=== PATIENT | male | born 1965 | race Caucasian/White ===

== ENCOUNTER 2020-10-16 12:25 | Inpatient (IN) | payer OTHER ==
[~2020-10-16] VITALS: Ht 165.1 cm; Wt 78.5 kg
[2020-10-16 13:52] VITALS: BP 126/75
[2020-10-16 16:10] VITALS: BP 140/77
[2020-10-16 16:38] VITALS: BP 140/77
[2020-10-16] MEDS: SENNA 187 MG TABLET PO SCH (20:47)
[2020-10-16] MEDS: ETHYL ALCOHOL 62% ANTISEPTIC NASAL INHALANT 0.6 ML AMPUL NASAL SCH (20:47)
[2020-10-16] MEDS: DOCUSATE SODIUM 100 MG CAPSULE PO SCH (20:48)
[2020-10-16 23:30] VITALS: BP 141/86
[2020-10-16] MEDS: MELATONIN 5 MG TABLET PO PRN (23:36)
[2020-10-17 00:03] VITALS: BP 141/86
[2020-10-17 06:26] LABS: BASOPHILS % (AUTO) 0.6 % (0.0-2.0); HEMATOCRIT 40.6 % (41-53); HEMOGLOBIN 13.6 g/dL (13.5-17.5); LYMPHOCYTES # (AUTO) 1.5 K/uL (1.0-4.8); LYMPHOCYTES % (AUTO) 15.3 % (22.0-44.0); MEAN CORPUSCULAR HEMOGLOBIN 30.8 pg (26.0-34.0); MEAN CORPUSCULAR HGB CONC 33.5 G/dL (31.0-37.0); MEAN CORPUSCULAR VOLUME 92 fL (80-100); MONOCYTES % (AUTO) 9.7 % (2.0-9.0); NEUTROPHILS # (AUTO) 7.1 K/uL (1.8-7.7); NEUTROPHILS % (AUTO) 70.4 % (40.0-70.0); PLATELET COUNT (AUTO) 363 K/uL (150-450); RED BLOOD CELL COUNT(AUTO) 4.41 MIL/uL (4.50-5.90); RED CELL DISTRIBUTION WIDTH 12.7 % (11.5-14.5)
[2020-10-17 06:46] LABS: ALANINE AMINOTRANSFERASE 76 U/L (12-78); ALBUMIN 3.3 g/dL (3.4-5.0); ALKALINE PHOSPHATASE 135 U/L (46-116); ANION GAP 11 mmol/L (8-16); ASPARTATE AMINOTRANSFERASE 40 U/L (15-37); BILIRUBIN,TOTAL 0.4 mg/dL (0.1-1.0); CALCIUM, TOTAL 9.1 mg/dL (8.8-10.5); CARBON DIOXIDE 24 mmol/L (22-29); CHLORIDE 105 mmol/L (98-107); CREATININE 0.61 mg/dL (0.60-1.30); GLOMERULAR FILTR. RATE CALC > 60 mL/min (>60); GLUCOSE,RANDOM 108 mg/dL (70-110); POTASSIUM 4.2 mmol/L (3.5-5.1); SODIUM SERUM 140 mmol/L (136-145); TOTAL PROTEIN, SERUM 7.7 g/dL (6.4-8.2); UREA NITROGEN, BLOOD 14 mg/dL (7-18)
[2020-10-17] MEDS: ETHYL ALCOHOL 62% ANTISEPTIC NASAL INHALANT 0.6 ML AMPUL NASAL SCH ×2 (08:44→21:20)
[2020-10-17] MEDS: MULTIVITAMINS WITH MINERALS, THERAPEUTIC TABLET PO SCH (08:44)
[2020-10-17] MEDS: POLYETHYLENE GLYCOL 3350 17 GM PACKET PO SCH (08:44)
[2020-10-17] MEDS: DOCUSATE SODIUM 100 MG CAPSULE PO SCH ×2 (08:44→21:20)
[2020-10-17] MEDS: SERTRALINE HCL 100 MG TABLET PO SCH (08:44)
[2020-10-17] MEDS: CHOLECALCIFEROL (VIT D3) 2,000 UNITS [50 MCG] TABLET PO SCH (08:44)
[2020-10-17] MEDS: ENOXAPARIN SODIUM 40 MG/0.4 ML PF SYRINGE SQ SCH (08:44)
[2020-10-17] MEDS ORDERED: DONEPEZIL HCL 10 MG TABLET PO SCH (09:00)
[2020-10-17 12:37] VITALS: BP 147/78
[2020-10-17] MEDS: MELATONIN 5 MG TABLET PO PRN (21:20)
[2020-10-17] MEDS: MEMANTINE HCL 10 MG TABLET PO SCH (21:20)
[2020-10-17] MEDS: SENNA 187 MG TABLET PO SCH (21:20)
[2020-10-17 22:12] VITALS: BP 130/73
[2020-10-18 09:34] VITALS: BP 118/70
[2020-10-18] MEDS: DOCUSATE SODIUM 100 MG CAPSULE PO SCH ×2 (12:58→20:30)
[2020-10-18] MEDS: SERTRALINE HCL 100 MG TABLET PO SCH (12:58)
[2020-10-18] MEDS: MULTIVITAMINS WITH MINERALS, THERAPEUTIC TABLET PO SCH (12:58)
[2020-10-18] MEDS: MEMANTINE HCL 10 MG TABLET PO SCH ×2 (12:58→20:30)
[2020-10-18] MEDS: ENOXAPARIN SODIUM 40 MG/0.4 ML PF SYRINGE SQ SCH (12:58)
[2020-10-18] MEDS: POLYETHYLENE GLYCOL 3350 17 GM PACKET PO SCH (12:58)
[2020-10-18] MEDS: CHOLECALCIFEROL (VIT D3) 2,000 UNITS [50 MCG] TABLET PO SCH (12:58)
[2020-10-18] MEDS: ETHYL ALCOHOL 62% ANTISEPTIC NASAL INHALANT 0.6 ML AMPUL NASAL SCH ×2 (12:59→20:30)
[2020-10-18] MEDS ORDERED: SODIUM CL IRRIG SOLN BOTTLE 250 ML IRRIG ONE (13:49)
[2020-10-18] MEDS: HYDROCORTISONE 2.5% 30 GM CREAM TP SCH ×2 (15:17→20:31)
[2020-10-18 15:43] VITALS: BP 111/76
[2020-10-18] MEDS: ACETAMINOPHEN 325 MG TABLET PO PRN ×2 (15:43→23:04)
[2020-10-18] MEDS: SENNA 187 MG TABLET PO SCH (20:30)
[2020-10-18] MEDS: MELATONIN 5 MG TABLET PO PRN (23:05)
[2020-10-18 23:18] VITALS: BP 133/71
[2020-10-19] MEDS: ETHYL ALCOHOL 62% ANTISEPTIC NASAL INHALANT 0.6 ML AMPUL NASAL SCH ×2 (08:29→20:39)
[2020-10-19] MEDS: MULTIVITAMINS WITH MINERALS, THERAPEUTIC TABLET PO SCH (08:30)
[2020-10-19] MEDS: SERTRALINE HCL 100 MG TABLET PO SCH (08:30)
[2020-10-19] MEDS: CHOLECALCIFEROL (VIT D3) 2,000 UNITS [50 MCG] TABLET PO SCH (08:30)
[2020-10-19] MEDS: POLYETHYLENE GLYCOL 3350 17 GM PACKET PO SCH (08:30)
[2020-10-19] MEDS: MEMANTINE HCL 10 MG TABLET PO SCH ×2 (08:30→20:39)
[2020-10-19] MEDS: DOCUSATE SODIUM 100 MG CAPSULE PO SCH ×2 (08:30→20:39)
[2020-10-19] MEDS: ENOXAPARIN SODIUM 40 MG/0.4 ML PF SYRINGE SQ SCH (08:31)
[2020-10-19] MEDS: HYDROCORTISONE 2.5% 30 GM CREAM TP SCH ×2 (08:31→20:39)
[2020-10-19] MEDS ORDERED: MECLIZINE HCL 25 MG TABLET PO PRN (08:45)
[2020-10-19 09:25] VITALS: BP 136/91
[2020-10-19] MEDS ORDERED: DOCUSATE SODIUM 283 MG/5 ML MINI-ENEMA PR PRN (16:30)
[2020-10-19 16:46] VITALS: BP 135/71
[2020-10-19] MEDS: SENNA 187 MG TABLET PO SCH (20:39)
[2020-10-19] MEDS: MELATONIN 5 MG TABLET PO PRN (20:44)
[2020-10-19 23:41] VITALS: BP 125/77
[2020-10-20] MEDS ORDERED: POLY17PO47 PO (03:45)
[2020-10-20] MEDS ORDERED: DOCU-270 PO (03:45)
[2020-10-20] MEDS ORDERED: MULT-1239 PO (03:46)
[2020-10-20] MEDS ORDERED: MEMA10TA11 PO (03:46)
[2020-10-20] MEDS ORDERED: SERT-162 PO (03:53)
[2020-10-20] MEDS ORDERED: HYDR30CR3 TP (03:53)
[2020-10-20] MEDS ORDERED: SENN8.6T90 PO (03:53)
[2020-10-20] MEDS ORDERED: CHOL200016 PO (03:53)
[2020-10-20] MEDS: SERTRALINE HCL 100 MG TABLET PO SCH (08:20)
[2020-10-20] MEDS: DOCUSATE SODIUM 100 MG CAPSULE PO SCH ×2 (08:20→20:48)
[2020-10-20] MEDS: POLYETHYLENE GLYCOL 3350 17 GM PACKET PO SCH (08:20)
[2020-10-20] MEDS: ENOXAPARIN SODIUM 40 MG/0.4 ML PF SYRINGE SQ SCH (08:20)
[2020-10-20] MEDS: MEMANTINE HCL 10 MG TABLET PO SCH ×2 (08:20→20:48)
[2020-10-20] MEDS: MULTIVITAMINS WITH MINERALS, THERAPEUTIC TABLET PO SCH (08:20)
[2020-10-20] MEDS: ETHYL ALCOHOL 62% ANTISEPTIC NASAL INHALANT 0.6 ML AMPUL NASAL SCH ×2 (08:20→20:48)
[2020-10-20] MEDS: CHOLECALCIFEROL (VIT D3) 2,000 UNITS [50 MCG] TABLET PO SCH (08:34)
[2020-10-20] MEDS: HYDROCORTISONE 2.5% 30 GM CREAM TP SCH ×2 (08:35→20:48)
[2020-10-20 09:01] VITALS: BP 134/76
[2020-10-20] MEDS: ACETAMINOPHEN 325 MG TABLET PO PRN (11:09)
[2020-10-20 16:30] VITALS: BP 127/80
[2020-10-20] MEDS: SENNA 187 MG TABLET PO SCH (20:48)
[2020-10-20] MEDS: MELATONIN 5 MG TABLET PO PRN (22:05)
[2020-10-21] VITALS: BP 123/75
[2020-10-21] MEDS: MEMANTINE HCL 10 MG TABLET PO SCH ×2 (08:24→20:03)
[2020-10-21] MEDS: SERTRALINE HCL 100 MG TABLET PO SCH (08:24)
[2020-10-21] MEDS: CHOLECALCIFEROL (VIT D3) 2,000 UNITS [50 MCG] TABLET PO SCH (08:24)
[2020-10-21] MEDS: ETHYL ALCOHOL 62% ANTISEPTIC NASAL INHALANT 0.6 ML AMPUL NASAL SCH ×2 (08:24→20:03)
[2020-10-21] MEDS: ENOXAPARIN SODIUM 40 MG/0.4 ML PF SYRINGE SQ SCH (08:24)
[2020-10-21] MEDS: MULTIVITAMINS WITH MINERALS, THERAPEUTIC TABLET PO SCH (08:24)
[2020-10-21] MEDS: POLYETHYLENE GLYCOL 3350 17 GM PACKET PO SCH (08:25)
[2020-10-21] MEDS: DOCUSATE SODIUM 100 MG CAPSULE PO SCH ×2 (08:25→20:03)
[2020-10-21] MEDS: HYDROCORTISONE 2.5% 30 GM CREAM TP SCH ×2 (08:25→20:04)
[2020-10-21 09:11] VITALS: BP 122/80
[2020-10-21] MEDS: ACETAMINOPHEN 325 MG TABLET PO PRN (12:28)
[2020-10-21 16:15] VITALS: BP 123/79
[2020-10-21] MEDS: MELATONIN 5 MG TABLET PO PRN (20:03)
[2020-10-21] MEDS: SENNA 187 MG TABLET PO SCH (20:03)
[2020-10-22] VITALS: BP 115/70
[2020-10-22] MEDS: MULTIVITAMINS WITH MINERALS, THERAPEUTIC TABLET PO SCH (08:49)
[2020-10-22] MEDS: ETHYL ALCOHOL 62% ANTISEPTIC NASAL INHALANT 0.6 ML AMPUL NASAL SCH ×2 (08:49→20:27)
[2020-10-22] MEDS: CHOLECALCIFEROL (VIT D3) 2,000 UNITS [50 MCG] TABLET PO SCH (08:49)
[2020-10-22] MEDS: DOCUSATE SODIUM 100 MG CAPSULE PO SCH ×2 (08:49→20:27)
[2020-10-22] MEDS: POLYETHYLENE GLYCOL 3350 17 GM PACKET PO SCH (08:49)
[2020-10-22] MEDS: HYDROCORTISONE 2.5% 30 GM CREAM TP SCH ×2 (08:50→20:27)
[2020-10-22] MEDS: ENOXAPARIN SODIUM 40 MG/0.4 ML PF SYRINGE SQ SCH (08:50)
[2020-10-22] MEDS: MEMANTINE HCL 10 MG TABLET PO SCH ×2 (08:50→20:26)
[2020-10-22] MEDS: SERTRALINE HCL 100 MG TABLET PO SCH (08:50)
[2020-10-22 09:30] VITALS: BP 122/77
[2020-10-22] MEDS: ACETAMINOPHEN 325 MG TABLET PO PRN ×2 (10:17→15:07)
[2020-10-22 16:07] VITALS: BP 125/73
[2020-10-22] MEDS: MELATONIN 5 MG TABLET PO PRN (20:26)
[2020-10-22] MEDS: SENNA 187 MG TABLET PO SCH (20:27)
[2020-10-22 23:24] VITALS: BP 112/77
[2020-10-23 06:37] LABS: HEMOGLOBIN A1C 5.6 % (3.8-5.6)
[2020-10-23 06:52] LABS: CHOL/HDL RATIO 4.9 (4.2-7.3); MAGNESIUM 2.1 mg/dL (1.80-2.40)
[2020-10-23] MEDS: ETHYL ALCOHOL 62% ANTISEPTIC NASAL INHALANT 0.6 ML AMPUL NASAL SCH ×2 (08:43→20:16)
[2020-10-23] MEDS: THIAMINE 100 MG TABLET PO SCH (08:43)
[2020-10-23] MEDS: FOLIC ACID 1 MG TABLET PO SCH (08:43)
[2020-10-23] MEDS: ENOXAPARIN SODIUM 40 MG/0.4 ML PF SYRINGE SQ SCH (08:43)
[2020-10-23] MEDS: SERTRALINE HCL 100 MG TABLET PO SCH (08:43)
[2020-10-23] MEDS: MULTIVITAMINS WITH MINERALS, THERAPEUTIC TABLET PO SCH (08:43)
[2020-10-23] MEDS: CHOLECALCIFEROL (VIT D3) 2,000 UNITS [50 MCG] TABLET PO SCH (08:43)
[2020-10-23] MEDS: DOCUSATE SODIUM 100 MG CAPSULE PO SCH (08:44)
[2020-10-23] MEDS: MEMANTINE HCL 10 MG TABLET PO SCH ×2 (08:45→20:16)
[2020-10-23] MEDS: HYDROCORTISONE 2.5% 30 GM CREAM TP SCH ×2 (08:46→20:16)
[2020-10-23] MEDS: POLYETHYLENE GLYCOL 3350 17 GM PACKET PO SCH (08:47)
[2020-10-23] MEDS ORDERED: POLYETHYLENE GLYCOL 3350 17 GM PACKET PO PRN (09:00)
[2020-10-23] MEDS ORDERED: DOCUSATE SODIUM 100 MG CAPSULE PO PRN (09:00)
[2020-10-23 09:39] VITALS: BP 120/78
[2020-10-23] MEDS: ACETAMINOPHEN 325 MG TABLET PO PRN (13:30)
[2020-10-23 16:30] VITALS: BP 110/70
[2020-10-23] MEDS: MELATONIN 5 MG TABLET PO PRN (23:59)
[2020-10-24 00:04] VITALS: BP 131/80
[2020-10-24 09:10] VITALS: BP 149/63
[2020-10-24] MEDS: ACETAMINOPHEN 325 MG TABLET PO PRN (09:26)
[2020-10-24] MEDS: MULTIVITAMINS WITH MINERALS, THERAPEUTIC TABLET PO SCH (09:27)
[2020-10-24] MEDS: CHOLECALCIFEROL (VIT D3) 2,000 UNITS [50 MCG] TABLET PO SCH (09:27)
[2020-10-24] MEDS: ETHYL ALCOHOL 62% ANTISEPTIC NASAL INHALANT 0.6 ML AMPUL NASAL SCH ×2 (09:27→21:20)
[2020-10-24] MEDS: MEMANTINE HCL 10 MG TABLET PO SCH ×2 (09:27→21:19)
[2020-10-24] MEDS: THIAMINE 100 MG TABLET PO SCH (09:27)
[2020-10-24] MEDS: SERTRALINE HCL 100 MG TABLET PO SCH (09:27)
[2020-10-24] MEDS: HYDROCORTISONE 2.5% 30 GM CREAM TP SCH ×2 (09:28→21:20)
[2020-10-24] MEDS: FOLIC ACID 1 MG TABLET PO SCH (09:28)
[2020-10-24] MEDS: ENOXAPARIN SODIUM 40 MG/0.4 ML PF SYRINGE SQ SCH (09:28)
[2020-10-24 17:00] VITALS: BP 120/64
[2020-10-24] MEDS: MELATONIN 5 MG TABLET PO PRN (21:19)
[2020-10-25 00:22] VITALS: BP 128/77
[2020-10-25 08:15] VITALS: BP 144/66
[2020-10-25] MEDS: FOLIC ACID 1 MG TABLET PO SCH (08:27)
[2020-10-25] MEDS: ETHYL ALCOHOL 62% ANTISEPTIC NASAL INHALANT 0.6 ML AMPUL NASAL SCH ×2 (08:27→20:13)
[2020-10-25] MEDS: MEMANTINE HCL 10 MG TABLET PO SCH ×2 (08:27→20:13)
[2020-10-25] MEDS: MULTIVITAMINS WITH MINERALS, THERAPEUTIC TABLET PO SCH (08:28)
[2020-10-25] MEDS: CHOLECALCIFEROL (VIT D3) 2,000 UNITS [50 MCG] TABLET PO SCH (08:28)
[2020-10-25] MEDS: HYDROCORTISONE 2.5% 30 GM CREAM TP SCH ×2 (08:28→20:13)
[2020-10-25] MEDS: ENOXAPARIN SODIUM 40 MG/0.4 ML PF SYRINGE SQ SCH (08:28)
[2020-10-25] MEDS: THIAMINE 100 MG TABLET PO SCH (08:28)
[2020-10-25] MEDS: SERTRALINE HCL 100 MG TABLET PO SCH (08:28)
[2020-10-25] MEDS: ACETAMINOPHEN 325 MG TABLET PO PRN (11:54)
[2020-10-25 16:19] VITALS: BP 101/57
[2020-10-25] MEDS: MELATONIN 5 MG TABLET PO PRN (20:56)
[2020-10-25 23:02] VITALS: BP 120/74
[2020-10-26] MEDS: MULTIVITAMINS WITH MINERALS, THERAPEUTIC TABLET PO SCH (08:46)
[2020-10-26] MEDS: FOLIC ACID 1 MG TABLET PO SCH (08:46)
[2020-10-26] MEDS: CHOLECALCIFEROL (VIT D3) 2,000 UNITS [50 MCG] TABLET PO SCH (08:46)
[2020-10-26] MEDS: MEMANTINE HCL 10 MG TABLET PO SCH ×2 (08:46→20:07)
[2020-10-26] MEDS: ETHYL ALCOHOL 62% ANTISEPTIC NASAL INHALANT 0.6 ML AMPUL NASAL SCH ×2 (08:46→20:07)
[2020-10-26] MEDS: THIAMINE 100 MG TABLET PO SCH (08:47)
[2020-10-26] MEDS: SERTRALINE HCL 100 MG TABLET PO SCH (08:47)
[2020-10-26] MEDS: ENOXAPARIN SODIUM 40 MG/0.4 ML PF SYRINGE SQ SCH (08:48)
[2020-10-26] MEDS: HYDROCORTISONE 2.5% 30 GM CREAM TP SCH ×2 (08:48→20:07)
[2020-10-26 08:49] VITALS: BP 128/75
[2020-10-26] MEDS: ACETAMINOPHEN 325 MG TABLET PO PRN (08:49)
[2020-10-26 09:49] VITALS: BP 128/75
[2020-10-26 16:11] VITALS: BP 113/68
[2020-10-26] MEDS: MELATONIN 5 MG TABLET PO PRN (20:07)
[2020-10-27] VITALS: BP 123/74
[2020-10-27] MEDS: ETHYL ALCOHOL 62% ANTISEPTIC NASAL INHALANT 0.6 ML AMPUL NASAL SCH ×2 (08:24→21:14)
[2020-10-27] MEDS: MULTIVITAMINS WITH MINERALS, THERAPEUTIC TABLET PO SCH (08:25)
[2020-10-27] MEDS: MEMANTINE HCL 10 MG TABLET PO SCH ×2 (08:25→21:14)
[2020-10-27] MEDS: FOLIC ACID 1 MG TABLET PO SCH (08:25)
[2020-10-27] MEDS: CHOLECALCIFEROL (VIT D3) 2,000 UNITS [50 MCG] TABLET PO SCH (08:26)
[2020-10-27] MEDS: SERTRALINE HCL 100 MG TABLET PO SCH (08:26)
[2020-10-27] MEDS: THIAMINE 100 MG TABLET PO SCH (08:26)
[2020-10-27] MEDS: ENOXAPARIN SODIUM 40 MG/0.4 ML PF SYRINGE SQ SCH (08:27)
[2020-10-27] MEDS: HYDROCORTISONE 2.5% 30 GM CREAM TP SCH ×2 (08:28→21:15)
[2020-10-27 08:49] VITALS: BP 147/84
[2020-10-27 16:01] VITALS: BP 124/53
[2020-10-27] MEDS: MELATONIN 5 MG TABLET PO PRN (21:44)
[2020-10-28 05:45] VITALS: BP 133/73
[2020-10-28] MEDS: ETHYL ALCOHOL 62% ANTISEPTIC NASAL INHALANT 0.6 ML AMPUL NASAL SCH ×2 (08:06→20:44)
[2020-10-28] MEDS: CHOLECALCIFEROL (VIT D3) 2,000 UNITS [50 MCG] TABLET PO SCH (08:07)
[2020-10-28] MEDS: MULTIVITAMINS WITH MINERALS, THERAPEUTIC TABLET PO SCH (08:07)
[2020-10-28] MEDS: FOLIC ACID 1 MG TABLET PO SCH (08:07)
[2020-10-28] MEDS: THIAMINE 100 MG TABLET PO SCH (08:08)
[2020-10-28] MEDS: SERTRALINE HCL 100 MG TABLET PO SCH (08:08)
[2020-10-28] MEDS: MEMANTINE HCL 10 MG TABLET PO SCH ×2 (08:10→20:44)
[2020-10-28] MEDS: ENOXAPARIN SODIUM 40 MG/0.4 ML PF SYRINGE SQ SCH (08:12)
[2020-10-28] MEDS: HYDROCORTISONE 2.5% 30 GM CREAM TP SCH ×2 (08:13→20:45)
[2020-10-28 09:07] VITALS: BP 114/49
[2020-10-28 16:20] VITALS: BP 113/71
[2020-10-28] MEDS: MELATONIN 5 MG TABLET PO PRN (20:45)
[2020-10-29] VITALS: BP 123/77
[2020-10-29] MEDS ORDERED: THIA100T80 PO (01:08)
[2020-10-29] MEDS ORDERED: FOLI-130 PO (01:08)
[2020-10-29] MEDS: MULTIVITAMINS WITH MINERALS, THERAPEUTIC TABLET PO SCH (08:00)
[2020-10-29] MEDS: ETHYL ALCOHOL 62% ANTISEPTIC NASAL INHALANT 0.6 ML AMPUL NASAL SCH ×2 (08:00→20:36)
[2020-10-29] MEDS: ENOXAPARIN SODIUM 40 MG/0.4 ML PF SYRINGE SQ SCH (08:00)
[2020-10-29] MEDS: HYDROCORTISONE 2.5% 30 GM CREAM TP SCH ×2 (08:00→20:36)
[2020-10-29] MEDS: THIAMINE 100 MG TABLET PO SCH (08:01)
[2020-10-29] MEDS: SERTRALINE HCL 100 MG TABLET PO SCH (08:01)
[2020-10-29] MEDS: FOLIC ACID 1 MG TABLET PO SCH (08:01)
[2020-10-29] MEDS: CHOLECALCIFEROL (VIT D3) 2,000 UNITS [50 MCG] TABLET PO SCH (08:01)
[2020-10-29] MEDS: MEMANTINE HCL 10 MG TABLET PO SCH ×2 (08:04→20:36)
[2020-10-29 09:00] VITALS: BP 125/83
[2020-10-29 16:34] VITALS: BP 113/66
[2020-10-29] MEDS: MELATONIN 5 MG TABLET PO PRN (20:36)
[2020-10-30] VITALS: BP 115/74
[2020-10-30] MEDS: ACETAMINOPHEN 325 MG TABLET PO PRN (08:22)
[2020-10-30] MEDS: ENOXAPARIN SODIUM 40 MG/0.4 ML PF SYRINGE SQ SCH (08:24)
[2020-10-30] MEDS: ETHYL ALCOHOL 62% ANTISEPTIC NASAL INHALANT 0.6 ML AMPUL NASAL SCH ×2 (08:25→22:28)
[2020-10-30] MEDS: MULTIVITAMINS WITH MINERALS, THERAPEUTIC TABLET PO SCH (08:25)
[2020-10-30] MEDS: THIAMINE 100 MG TABLET PO SCH (08:25)
[2020-10-30] MEDS: SERTRALINE HCL 100 MG TABLET PO SCH (08:25)
[2020-10-30] MEDS: FOLIC ACID 1 MG TABLET PO SCH (08:26)
[2020-10-30] MEDS: MEMANTINE HCL 10 MG TABLET PO SCH ×2 (08:26→22:27)
[2020-10-30 09:00] VITALS: BP 110/75
[2020-10-30] MEDS: HYDROCORTISONE 2.5% 30 GM CREAM TP SCH ×2 (09:00→22:28)
[2020-10-30] MEDS: CHOLECALCIFEROL (VIT D3) 2,000 UNITS [50 MCG] TABLET PO SCH (09:11)
[2020-10-30 15:00] VITALS: BP 109/56
[2020-10-30] MEDS: MELATONIN 5 MG TABLET PO PRN (22:27)
[2020-10-31] VITALS: BP 128/89
[2020-10-31] MEDS: SERTRALINE HCL 100 MG TABLET PO SCH (09:09)
[2020-10-31] MEDS: FOLIC ACID 1 MG TABLET PO SCH (09:09)
[2020-10-31] MEDS: MEMANTINE HCL 10 MG TABLET PO SCH (09:09)
[2020-10-31] MEDS: MULTIVITAMINS WITH MINERALS, THERAPEUTIC TABLET PO SCH (09:09)
[2020-10-31] MEDS: ENOXAPARIN SODIUM 40 MG/0.4 ML PF SYRINGE SQ SCH (09:09)
[2020-10-31] MEDS: CHOLECALCIFEROL (VIT D3) 2,000 UNITS [50 MCG] TABLET PO SCH (09:09)
[2020-10-31] MEDS: THIAMINE 100 MG TABLET PO SCH (09:09)
[2020-10-31] MEDS: HYDROCORTISONE 2.5% 30 GM CREAM TP SCH (09:10)
[2020-10-31] MEDS: ETHYL ALCOHOL 62% ANTISEPTIC NASAL INHALANT 0.6 ML AMPUL NASAL SCH (09:11)
[2020-10-31 09:56] VITALS: BP 134/82
== END 2020-10-31 13:00 | disposition home or self-care (01) | DRG 948 ==
LOC: 2WR 12:25
PROVIDERS: ADMIT Physical Medicine & Rehabilitation; ATTEND Physical Medicine & Rehabilitation
DX: R53.81 Other malaise (principal); A69.20 Lyme disease, unspecified; G89.29 Other chronic pain; K57.90 Diverticulosis of intestine, part unspecified, without perforation or abscess without bleeding; M54.5 Low back pain; R26.9 Unspecified abnormalities of gait and mobility; F03.90 Unspecified dementia, unspecified severity, without behavioral disturbance, psychotic disturbance, mood disturbance, and anxiety; F32.9 Major depressive disorder, single episode, unspecified; R13.10 Dysphagia, unspecified; G31.84 Mild cognitive impairment of uncertain or unknown etiology; G47.00 Insomnia, unspecified; R47.1 Dysarthria and anarthria; K59.00 Constipation, unspecified; R41.89 Other symptoms and signs involving cognitive functions and awareness; R32 Unspecified urinary incontinence; Z86.73 Personal history of transient ischemic attack (TIA), and cerebral infarction without residual deficits; Z79.899 Other long term (current) drug therapy; Z93.3 Colostomy status; Z98.890 Other specified postprocedural states
CPT/HCPCS: 80053; 80061; 83036; 83735; 84100; 85025; 87081; 92507; 92523; 93970; 97110; 97112; 97116; 97140; 97163; 97167; 97530; 97535; 99366; 99368; J1650; Q9967